=== PATIENT | male | born 1975 | race Caucasian/White ===

== ENCOUNTER 2018-06-17 19:35 | Emergency (ER) | payer OTHER, MEDICAID ==
[2018-06-17 19:35] VITALS: BMI 21.4
[2018-06-17 19:51] VITALS: BP 120/76; PULSE 92; RESP 22; TEMP 98.1; O2SAT 98
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
== END 2018-06-17 21:53 | disposition home or self-care (01) ==
LOC: C.ER 19:35
DX: T14.8XXA Other injury of unspecified body region, initial encounter (principal); W19.XXXA Unspecified fall, initial encounter; Y93.55 Activity, bike riding